=== PATIENT | male | born 2000 | race African-American/Black ===

== ENCOUNTER 2025-03-01 07:31 | Emergency (ER) | payer MEDICAID ==
[~2025-03-01] VITALS: Ht 182.9 cm; Wt 75.0 kg
[2025-03-01 07:41] VITALS: O2SAT 98
[2025-03-01 07:43] VITALS: BP 132/86; PULSE 67; RESP 18; TEMP 36.5; O2SAT 99
[2025-03-01] MEDS ORDERED: ONDANSETRON HCL 4MG/2ML INJ IV ONE (08:30)
[2025-03-01] MEDS ORDERED: ACETAMINOPHEN 325MG TABLET PO ONE (08:30)
[2025-03-01 08:59] LABS: BASOPHILS % 0.5 % (0.0-2.0); EOSINOPHILS % 0.8 % (0.0-5.0); HEMATOCRIT. 44.7 % (42.0-52.0); HEMOGLOBIN. 15.1 g/dL (14.0-18.0); LYMPHOCYTES % 42.7 % (20.0-50.0); MEAN PLATELET VOLUME 8.6 fl (7.4-10.4); MONOCYTES % 6.0 % (2.0-8.0); NEUTROPHILS % 50.0 % (40.0-76.0); PLATELET 236 x1000/uL (130-400); RED BLOOD CELL COUNT 4.75 mill/uL (4.7-6.1); RED CELL DISTRIBUTION WIDTH 13.7 % (11.6-14.6)
[2025-03-01 09:14] LABS: CREATININE 0.9 mg/dL (0.6-1.3); UREA NITROGEN BLOOD 8 mg/dL (9-23)
[2025-03-01 09:16] LABS: ASPARTATE AMINOTRANSFERASE 71 IU/L (<34); BILIRUBIN DIRECT 0.2 mg/dL (<=3.0); BILIRUBIN TOTAL 0.5 mg/dL (0.1-1.0); PROTEIN TOTAL 7.4 g/dL (6.0-8.3)
[2025-03-01] MEDS ORDERED: TOPUD PO (09:25)
[2025-03-01] MEDS ORDERED: ONDA4TAB50 MT (09:25)
== END 2025-03-01 10:14 | disposition home or self-care (01) ==
LOC: ER 07:31 → CANBEDREQ 09:42 → ER 10:14
DX: R10.31 Right lower quadrant pain (principal); F12.90 Cannabis use, unspecified, uncomplicated; Z87.891 Personal history of nicotine dependence; Z90.49 Acquired absence of other specified parts of digestive tract; Z79.899 Other long term (current) drug therapy
CPT/HCPCS: 36415; 74176; 80048; 80076; 85025; 99284